=== PATIENT | male | born 1990 | race Caucasian/White ===

== ENCOUNTER 2018-01-28 16:19 | Emergency (ER) | payer OTHER ==
[~2018-01-28] VITALS: Ht 188 cm; Wt 117.9 kg
--- NOTE | 2018-01-28 18:13 | ED SKIN/ALLERGY COMPLAINT ---
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 UNKNOWN LAST TETANUS SHOT. SITE NOT SEEN, PT STATES BANDAGE APPLIED THIS AM. PT STATES BANDAGE APPLIED THIS AM. Triage Nurses Notes Reviewed? yes Onset: Abrupt Duration: day(s): (1), better, continues in ED Timing: single episode today Severity: mild, moderate Severity Numbers: 4 Location: extremities Possible Factors: LACERATION No Modifying Factors: none HPI: 27-year-old male with no past medical history presents for evaluation of a laceration to his left thigh. Patient states he was at work using a razor blade when he accidentally cut his left anterior thigh. He reports a 1 cm superficial laceration to the anterior thigh. He reports minimal pain in the area. NO tingling and difficulty walking. He is unsure of his last tetanus. No other injuries. Past History Travel History Traveled to [place] past 21 day No Medical History Any Pertinent Medical History? see below for history Surgical History Surgical History: non-contributory Psychosocial History What is your primary language [place] Tobacco Use: Never used ETOH Use: occasional use Illicit Drug Use: denies illicit drug use Family History Hx Contributory? No Review of Systems Review of Systems Constitutional: Reports: no symptoms. EENTM: Reports: no symptoms. Respiratory: Reports: no symptoms. Cardiovascular: Reports: no symptoms. GI: Reports: no symptoms. Genitourinary: Reports: no symptoms. Musculoskeletal: Reports: no symptoms. Skin: Reports: see HPI (LACERATION). Neurological/Psychological: Reports: no symptoms. Hematologic/Endocrine: Reports: no symptoms. Immunologic/Allergic: Reports: no symptoms. All Other Systems: Reviewed and Negative Physical Exam Physical Exam General Appearance: well developed/nourished, no apparent distress, alert, awake Head: atraumatic, normal appearance Eyes: Bilateral: normal appearance, EOMI. Ears, Nose, Throat: hearing grossly normal Neck: normal inspection, supple, full range of motion Respiratory: no respiratory distress Peripheral Pulses: 2+ radial (R), 2+ radial (L) Back: normal inspection, normal range of motion, no vertebral tenderness Extremities: normal inspection, normal range of motion, no edema Neurologic/Psych: no motor/sensory deficits, awake, alert, oriented x 3, normal gait Skin: intact, normal color, warm/dry, LACERATION Skin Problem Location: lower extremities (LEFT ANTERIOR THIGH) Skin Problem Character: THERE IS A 1 CM LINEAR SUPERFICIAL LACERATION TO THE LEFT ANTERIOR THIGH. nO ACTIVE BLEEDING NO SUBCUTANEOUS TISSUE FULL RANGE OF MOTION OF THE LEFT LOWER EXTREMITY IS INTACT WITHOUT PAIN PATIENT IS ABLE TO WALK AND BEAR WEIGHT Progress Differential Diagnosis: LACERATION, ABRASION, FOREIGN BODY Plan of Care: Patient seen and evaluated. He has a 1 cm superficial linear laceration to the left anterior thigh. There is no SQ tissue no active bleeding. The area was clean with Betadine Steri-Strips and glue were used to approximate the wound. Patient tolerated well sterile dressing applied. Discussed wound care procedures in detail. Tetanus updated. Discussed return precautions including signs of infection patient agrees the plan. Departure Departure Disposition: HOME OR SELF CARE Condition: Stable Clinical Impression Primary Impression: Laceration Referrals: Denice Sheikh (PCP/Family) Additional Instructions: Rest, keep the area clean and dry. Change outer dressing once daily. YOU need to keep the area dry for at least 3 or 4 days. The Steri-Strips and glue will come off on their own in 3 or 4 days. [place] for signs of infection like redness swelling discharge or pain. Make a follow-up with YOUr primary care doctor for recheck in a few days' monitor symptoms return with any concerns. Departure Forms: Customer Survey General Discharge Information
[2018-01-28 18:28] VITALS: BP 134/68
== END 2018-01-28 18:36 ==
LOC: ERH 16:19
DX: S71.112A Laceration without foreign body, left thigh, initial encounter (principal); W45.8XXA Other foreign body or object entering through skin, initial encounter; Y92.9 Unspecified place or not applicable; Y93.9 Activity, unspecified
CPT/HCPCS: 90471; 90714